=== PATIENT | male | born 1945 | race Caucasian/White ===

== ENCOUNTER 2017-09-27 07:08 | Outpatient (CLI) | payer MEDICARE, OTHER ==
[2017-09-27 11:02] LABS: BASOPHILS # (AUTO) 0.1 10^3/uL (0.0-0.1); BASOPHILS % (AUTO) 0.9 %; EOSINOPHILS # (AUTO) 0.1 10^3/uL (0.0-0.7); EOSINOPHILS % (AUTO) 1.5 %; HCT - HEMATOCRIT 47.3 % (42.0-52.0); HGB - HEMOGLOBIN 15.6 g/dL (14.0-18.0); LYMPHOCYTES # (AUTO) 1.9 10^3/uL (1.5-3.5); LYMPHOCYTES % (AUTO) 29.2 %; MEAN CORPUSCULAR HEMOGLOBIN 30.7 pg (27.0-31.0); MEAN CORPUSCULAR HGB CONC 32.9 g/dL (32.0-36.0); MEAN CORPUSCULAR VOLUME 93.1 fL (80.0-94.0); MEAN PLATELET VOLUME 8.4 fL (7.4-11.4); MONOCYTES # (AUTO) 0.5 10^3/uL (0.0-1.0); MONOCYTES % (AUTO) 8.3 %; NEUTROPHILS # (AUTO) 3.9 10^3/uL (1.5-6.6); NEUTROPHILS % (AUTO) 60.1 %; NUCLEATED RED BLOOD CELLS AUTO 0.1 /100WBC; RED BLOOD COUNT 5.08 10^6/uL (4.70-6.10); RED CELL DISTRIBUTION WIDTH 13.6 % (12.0-15.0); UNCORRECTED WHITE BLOOD COUNT 6.5 x10^3/uL; WHITE BLOOD COUNT 6.5 x10^3/uL (4.8-10.8)
[2017-09-27 11:21] LABS: ALBUMIN/GLOBULIN RATIO 2.1 (1.0-2.2); BILIRUBIN,TOTAL 0.8 mg/dL (0.2-1.0); BUN - BLOOD UREA NITROGEN 20 mg/dL (6-20); CARBON DIOXIDE - CO2 26 mmol/L (21-32); CHLORIDE 104 mmol/L (101-111); CHOLESTEROL 131 mg/dL; CREATININE 0.9 mg/dL (0.6-1.2); GFR - MDRD 82 (>89); GLUCOSE 98 mg/dL (70-100); HDL CHOLESTEROL 43 mg/dL; LDL/HDL RATIO 1.6 (<3.6); POTASSIUM 3.9 mmol/L (3.5-5.0); SODIUM 141 mmol/L (135-145); TOTAL PROTEIN 6.8 g/dL (6.7-8.2); TRIGLYCERIDES 89 mg/dL; VLDL CHOLESTEROL 18 mg/dL
== END 2017-09-27 07:09 | disposition home or self-care (01) ==
LOC: LAB.F 07:08
PROVIDERS: ATTEND Internal Medicine
DX: R03.0 Elevated blood-pressure reading, without diagnosis of hypertension (principal); E78.5 Hyperlipidemia, unspecified; K21.9 Gastro-esophageal reflux disease without esophagitis
CPT/HCPCS: 36415; 80053; 80061; 85025

== ENCOUNTER 2018-07-03 09:43 | Outpatient (CLI) | payer MEDICARE, OTHER ==
[2018-07-03 10:03] LABS: BASOPHILS % (AUTO) 0.4 %; EOSINOPHILS # (AUTO) 0.1 10^3/uL (0.0-0.7); EOSINOPHILS % (AUTO) 1.1 %; LYMPHOCYTES # (AUTO) 1.4 10^3/uL (1.5-3.5); LYMPHOCYTES % (AUTO) 19.4 %; MEAN CORPUSCULAR HEMOGLOBIN 31.1 pg (27.0-31.0); MEAN CORPUSCULAR HGB CONC 33.6 g/dL (32.0-36.0); MEAN CORPUSCULAR VOLUME 92.6 fL (80.0-94.0); MEAN PLATELET VOLUME 7.3 fL (7.4-11.4); MONOCYTES # (AUTO) 0.5 10^3/uL (0.0-1.0); MONOCYTES % (AUTO) 6.8 %; NEUTROPHILS # (AUTO) 5.1 10^3/uL (1.5-6.6); NEUTROPHILS % (AUTO) 72.3 %; PLT - PLATELET COUNT 221 10^3/uL (130-450); RED BLOOD COUNT 5.16 10^6/uL (4.70-6.10); RED CELL DISTRIBUTION WIDTH 13.8 % (12.0-15.0); WHITE BLOOD COUNT 7.1 x10^3/uL (4.8-10.8)
[2018-07-03 10:22] LABS: ALBUMIN 4.1 g/dL (3.2-5.5); ALBUMIN/GLOBULIN RATIO 1.5 (1.0-2.2); BILIRUBIN,TOTAL 0.5 mg/dL (0.2-1.0); CREATININE 0.9 mg/dL (0.6-1.2); TOTAL PROTEIN 6.8 g/dL (6.7-8.2)
--- NOTE | 2018-07-03 10:51 | XRAY Report ---
Reason: COUGH Procedure Date: 07/03/2018 Accession Number: [id number] / [id number] Procedure: XR - Chest 2 View X-Ray CPT Code: 05508 FULL RESULT: EXAM: CHEST RADIOGRAPHY EXAM DATE: 07/03/2018 10:35 AM. CLINICAL HISTORY: COUGH. COMPARISON: Chest 12/18/2015. TECHNIQUE: 2 views. FINDINGS: There is a large right pleural effusion, with likely underlying consolidation and/or atelectasis. Underlying mass is not excluded. Mediastinal contour appears otherwise unremarkable. No obvious pneumothorax. IMPRESSION: Interval right pleural effusion. Likely underlying consolidation and/or atelectasis. Although findings likely represent pneumonia in the correct clinical setting, other etiologies are not excluded. Follow-up is recommended. Note: The patient was advised to seek medical treatment today for this condition and he expressed understanding. RADIA
== END 2018-07-03 09:44 | disposition home or self-care (01) ==
LOC: LAB 09:43 → DI 09:44
PROVIDERS: ATTEND Internal Medicine
DX: J90 Pleural effusion, not elsewhere classified (principal); R63.0 Anorexia; R05 Cough
CPT/HCPCS: 36415; 71046; 80053; 85025

== ENCOUNTER 2018-07-04 08:48 | Outpatient (CLI) | payer MEDICARE, OTHER ==
[2018-07-04] MEDS ORDERED: IOPAMIDOL-300 100 ML VIAL ONE (08:50)
[2018-07-04] MEDS ORDERED: IOPAMIDOL-300 100 ML VIAL IVP ONE (09:36)
--- NOTE | 2018-07-04 09:54 | CT Report ---
Reason: COUGH Procedure Date: 07/04/2018 Accession Number: [id number] / [id number] Procedure: CT - Chest W/ CPT Code: FULL RESULT: EXAM: CT CHEST EXAM DATE: 07/04/2018 09:10 AM. CLINICAL HISTORY: Cough. COMPARISONS: None. TECHNIQUE: Routine helical CT imaging was performed through the chest. IV contrast: None. Reconstructions: Coronal and sagittal. In accordance with CT protocol optimization, one or more of the following dose reduction techniques were utilized for this exam: automated exposure control, adjustment of mA and/or KV based on patient size, or use of iterative reconstructive technique. FINDINGS: Lungs/Pleura: There is a moderate-sized right-sided pleural effusion with moderate compressive atelectasis of the right lower and middle lobes. There is abnormal pleural and parenchymal-based nodularity seen along the medial right upper lobe measuring up to 3.8 x 2.2 cm (image 25, series 3). Multiple nodules are seen in the left lower lobe inferiorly measuring up to 1.9 cm (image 48, series 6). There is no left-sided pleural effusion. Mediastinum: Calcifications are seen in the mediastinum related to old granulomatous disease. There is no lymphadenopathy identified in the mediastinal or hilar regions. Heart size is normal with no pericardial effusion. Bones: The visualized spine demonstrates degenerative changes and multilevel anterior flowing osteophyte formation consistent with diffuse idiopathic skeletal hyperostosis (DISH). No acute osseous abnormality is demonstrated. Visualized Abdomen: Unremarkable. Other: None. IMPRESSION: 1. Moderate right pleural effusion and compressive atelectasis of the right lower and middle lobes. 2. Suspicious 3.8 cm pleural-parenchymal nodular prominence along the medial right upper lobe and nodules in the left lower lobe up to 1.9 cm concerning for malignancy, possibly right-sided lung primary with contralateral metastasis. RADIA
== END 2018-07-04 08:49 | disposition home or self-care (01) ==
LOC: DI 08:48
PROVIDERS: ATTEND Internal Medicine
DX: J90 Pleural effusion, not elsewhere classified (principal); J98.11 Atelectasis
CPT/HCPCS: 71260; Q9967

== ENCOUNTER 2018-07-11 09:09 | Outpatient (CLI) | payer MEDICARE, OTHER ==
[2018-07-11 09:45] LABS: INR 1.1 (0.8-1.2)
[2018-07-11 12:24] LABS: CC,BF RBC 367 /mm^3
[2018-07-11 14:04] LABS: LYMPHOCYTES %,BODY FLUID 26; MESOTHELIAL %, BF 72 %
[2018-07-11 14:05] LABS: BF COLOR BLOODY; BF SOURCE PLEURAL
--- NOTE | 2018-07-11 14:29 | XRAY Report ---
Reason: post thoracentesis Procedure Date: 07/11/2018 Accession Number: [id number] / [id number] Procedure: XR - XR 2V Insp/Exp Post Thorac CPT Code: 41274 FULL RESULT: EXAM: CHEST RADIOGRAPHY EXAM DATE: 07/11/2018 12:02 PM. CLINICAL HISTORY: Post thoracentesis. COMPARISON: Chest 2 views 07/03/2018. TECHNIQUE: 4 views. FINDINGS: Inspiration and expiration radiographs were performed immediately following right thoracentesis and 1 hour following right thoracentesis. Both time points demonstrate a questionable minimal right apical pneumothorax which does not enlarge over the 1 hour timeframe. Opacification of the right hemithorax consistent with pleural effusion is seen. The known thoracic malignancy is not well seen. The cardiomediastinal silhouette is stable throughout the examination. IMPRESSION: Stable minimal apical pneumothorax. RADIA
--- NOTE | 2018-07-11 14:33 | Ultrasound Report ---
Reason: PLEURAL EFFUSION Procedure Date: 07/11/2018 Accession Number: [id number] / [id number] Procedure: US - Thoracentesis Puncture CPT Code: FULL RESULT: EXAM: ULTRASOUND-GUIDED THORACENTESIS EXAM DATE: 07/11/2018 10:54 AM. CLINICAL HISTORY: Pleural effusion. COMPARISON: INSP/EXP POST THORA 2V CXR 07/11/2018 11:08 AM. TECHNIQUE: Risks, benefits and alternatives to the procedure were discussed with the patient. All questions answered. Written and verbal consent obtained. Patient was placed in the sitting position and the skin overlying the effusion marked with sonographic guidance. The skin was sterilely prepped and draped, and 1% buffered lidocaine was used for local anesthesia. An 17-gauge Glo Bags catheter/needle was advanced into the pleural space and fluid aspirated. Upon completion, the catheter was removed. FINDINGS: A total of 60 mL of fluid was removed without immediate complication. Patient tolerated procedure well. IMPRESSION: Ultrasound-guided thoracentesis without immediate complications. RADIA
[2018-07-11] MEDS ORDERED: BUFFERED LIDOCAINE 10 ML SYRINGE IU ONE (17:05)
== END 2018-07-11 09:10 | disposition home or self-care (01) ==
LOC: DI 09:09
PROVIDERS: ATTEND Internal Medicine
DX: J90 Pleural effusion, not elsewhere classified (principal); J95.811 Postprocedural pneumothorax
CPT/HCPCS: 32555; 36415; 71046; 81599; 85610; 87070; 87205; 88108; 88305; 88341; 88342; 89051

== ENCOUNTER 2018-07-18 07:51 | Outpatient (CLI) | payer MEDICARE, OTHER ==
[2018-07-18 15:49] LABS: CREATININE 0.9 mg/dL (0.6-1.2)
== END 2018-07-18 07:52 | disposition home or self-care (01) ==
LOC: LAB.F 07:51
PROVIDERS: ATTEND Internal Medicine
DX: C34.90 Malignant neoplasm of unspecified part of unspecified bronchus or lung (principal); Z79.899 Other long term (current) drug therapy
CPT/HCPCS: 36415; 82565

== ENCOUNTER 2018-07-26 10:43 | Outpatient (CLI) | payer MEDICARE, OTHER ==
--- NOTE | 2018-07-26 12:22 | XRAY Report ---
Reason: ADENOCARCINOMA LUNG SHORTNESS OF BREATH,PLEURAL EF Procedure Date: 07/26/2018 Accession Number: [id number] / [id number] Procedure: XR - Chest 2 View X-Ray CPT Code: 90989 FULL RESULT: EXAM: CHEST RADIOGRAPHY EXAM DATE: 07/26/2018 11:13 AM. CLINICAL HISTORY: Adenocarcinoma of lung, shortness of breath, pleural effusion. COMPARISON: Inspiratory//expiratory post thora 2-view chest x-ray 07/11/2018 11:08 AM. TECHNIQUE: 2 views. FINDINGS: Compared to 07/11/2018, there has been interval increase in the previously moderate right pleural effusion, now large. Mediastinal displacement to the left is increased with minimally increased tracheal deviation. No pneumothorax is identified. Aerated lung parenchyma demonstrates no opacities. IMPRESSION: Interval increase in the right pleural effusion with mediastinal shift. RADIA The above findings of increasing right hydrothorax with tracheal deviation were discussed with Kalee Sweeney by Dr. Markus Campbell at 12:00 hrs on 07/26/18.
[2018-07-26] MEDS ORDERED: BUFFERED LIDOCAINE 10 ML SYRINGE IU ONE (14:23)
--- NOTE | 2018-07-26 16:43 | XRAY Report ---
Reason: F/U THORACENTESIS Procedure Date: 07/26/2018 Accession Number: [id number] / [id number] Procedure: XR - XR 2V Insp/Exp Post Thorac CPT Code: 54807 FULL RESULT: EXAM: CHEST RADIOGRAPHY EXAM DATE: 07/26/2018 02:00 PM. CLINICAL HISTORY: Follow-up thoracentesis. COMPARISON: CHEST 2 VIEW 07/26/2018 11:07 AM. TECHNIQUE: 1 view. FINDINGS: Interval decrease in the size of the right pleural effusion consistent with thoracentesis. No sizable pneumothorax. The apparent interval development of left basilar opacities is possibly due to decreased inspiration. IMPRESSION: Interval decrease in right pleural effusion with left basilar findings felt to be due to decreased lung volume. RADIA
--- NOTE | 2018-07-26 16:43 | Ultrasound Report ---
Reason: RIGHT PLEURAL EFFUSION, ADENOMACARCINOMA Procedure Date: 07/26/2018 Accession Number: [id number] / [id number] Procedure: US - Thoracentesis Puncture CPT Code: FULL RESULT: EXAM: ULTRASOUND-GUIDED THORACENTESIS EXAM DATE: 07/26/2018 01:29 PM. CLINICAL HISTORY: Right pleural effusion, adenomacarcinoma. COMPARISON: None. TECHNIQUE: Risks, benefits and alternatives to the procedure were discussed with the patient. All questions answered. Written and verbal consent obtained. Patient was placed in the sitting position and the skin overlying the effusion marked with sonographic guidance. The skin was sterilely prepped and draped, and 1% buffered lidocaine was used for local anesthesia. An 17-gauge Yueh was advanced into the pleural space and fluid aspirated. Upon completion, the catheter was removed. FINDINGS: A total of 1100 mL of fluid was removed without immediate complication. Patient tolerated procedure well. IMPRESSION: Ultrasound-guided thoracentesis without immediate complications. RADIA
--- NOTE | 2018-07-27 10:28 | XRAY Report ---
Reason: F/U THORACENTESIS Procedure Date: 07/26/2018 Accession Number: [id number] / [id number] Procedure: XR - XR 2V Insp/Exp Post Thorac CPT Code: 74403 FULL RESULT: EXAM: CHEST RADIOGRAPHY EXAM DATE: 07/26/2018 04:02 PM. CLINICAL HISTORY: Follow-up thoracentesis. COMPARISON: Inspiratory/expiratory post thora 2 view chest x-ray 07/26/2018 1:59 PM. TECHNIQUE: 1 view. FINDINGS: No evidence of interval growth of pneumothorax or growth of pleural effusion to suggest procedural complication. Otherwise stable exam. IMPRESSION: Interval stability. RADIA
== END 2018-07-26 10:44 | disposition home or self-care (01) ==
LOC: DI 10:43
PROVIDERS: ATTEND Nurse Practitioner Primary Care
DX: C34.90 Malignant neoplasm of unspecified part of unspecified bronchus or lung (principal); J90 Pleural effusion, not elsewhere classified
CPT/HCPCS: 32555; 71046

== ENCOUNTER 2018-08-01 09:49 | Day surgery (SDC) | payer MEDICARE, OTHER ==
[2018-08-01] MEDS ORDERED: LACTATED RINGERS 1,000 ML IV ONE (10:30)
[2018-08-01] MEDS ORDERED: ceFAZolin 2 GM/50 ML 2 GM/50 ML BAG IV ONE (10:45)
--- NOTE | 2018-08-01 11:06 | ANESTHESIA ---
Pre-Anesthesia VS, & Labs - Diagnosis recurrent malignant effusion - Procedure pleural catheter placement Vital Signs: Temp Pulse Resp BP Pulse Ox 36.5 C 100 18 162/96 H 97 08/01/18 10:04 08/01/18 10:04 08/01/18 10:04 08/01/18 10:04 08/01/18 10:04 Height 5 ft 9.5 in Weight (kg) 90.7 kg - NPO >8 hours - Lab Results Lab results reviewed: Yes Home Medications and Allergies Home Medications: Ambulatory Orders Fexofenadine/Pseudoephedrine [Liana-D 24 Hour Tablet] 1 each PO DAILY 07/31/18 Naproxen Sodium [Aleve] 220 mg PO DAILY 07/31/18 Prednisone 50 mg PO DAILY 07/31/18 Ranitidine HCl [Zantac] 300 mg PO DAILY 07/31/18 Atorvastatin [Lipitor] 40 mg PO DAILY 12/18/15 Fexofenadine/Pseudoephedrine [Liana-D 24 Hour Tablet] 1 each PO DAILY 07/31/18 Naproxen Sodium [Aleve] 220 mg PO DAILY 07/31/18 Prednisone 50 mg PO DAILY 07/31/18 Ranitidine HCl [Zantac] 300 mg PO DAILY 07/31/18 Allergies/Adverse Reactions: Allergies Allergy/AdvReac Type Severity Reaction Status Date / Time codeine Allergy Unknown Verified 07/31/18 14:46 Iodinated Contrast- Oral and Allergy Hives Verified 07/31/18 14:46 IV Dye IV CONTRAST Allergy Hives Uncoded 07/31/18 14:27 Anes History & Medical History - Anesthetic History Anesthesia Complications: reports: Slow wake-up Family history of Anesthesia Complications: Denies Family history of Malignant Hyperthermia: Denies - Medical History Cardiovascular: reports: High cholesterol Pulmonary: reports: Shortness of breath Gastrointestinal: reports: None Urinary: reports: None Musculoskeletal: reports: None Endocrine/Autoimmune: reports: None Skin: reports: None Smoking Status: Never smoker - Surgical History Orthopedic: Rotator cuff repair, Other Exam General: Alert, Oriented x3, Cooperative, No acute distress Dental: Other (caps) Mouth Openin Fingerbreadth Neck Mobility: Normal Mallampati classification: II Thyromental Distance: greater than 6 cm Respiratory: Lungs clear Cardiovascular: Regular rate, Normal S1, Normal S2, No murmurs Mental/Cognitive Status: Alert/Oriented X3, Normal for patient Cognitive Status: Within normal limits Plan Anesthesia Type: MAC Consent for Procedure(s) Verified and Reviewed: Yes Code Status: Do Not Attempt Resuscitation ASA classification: 3-Severe systemic disease Is this case an emergency?: No
[2018-08-01] MEDS ORDERED: fentaNYL 100 MCG/2 ML VIAL IVP ONE (12:00)
[2018-08-01] MEDS ORDERED: LIDOCAINE-PF 4% 5 ML AMP SUBQ ONE (12:00)
[2018-08-01] MEDS ORDERED: PROPOFOL 200 MG/20 ML VIAL IVP ONE (12:00)
[2018-08-01] MEDS ORDERED: MIDAZOLAM 2 MG/2 ML VIAL IVP ONE (12:00)
[2018-08-01] MEDS ORDERED: LIDOCAINE 1% 50 ML MDV SUBQ ONE (12:25)
--- NOTE | 2018-08-01 13:08 | OPERATIVE REPORT ---
Operative Report - General Planned Procedure: Pleurex catheter placement (RIGHT chest) Pre-Op Diagnosis: Recurrent RIGHT pleural effusion Procedure Performed: Pleurex catheter placement (RIGHT chest) Post Op Diagnosis: Recurrent RIGHT pleural effusion - Procedure Note Primary Surgeon: Andrea Clark MD Anesthesia Provider: Marlon Elizalde CRNA Anesthesia Technique: Local (30 mL of 1% lidocaine), MAC IV Fluids (mL): 800 Estimated Blood Loss (mL): 5 Drain/Tube Type: Other (Pleurx catheter in right chest) Complications: None. - Other Other Information/Narrative: OPERATIVE DESCRIPTION/REPORT: After verbal and written informed consent was obtained detailing the risks of infection, bleeding requiring transfusion with its risks, nerve injury, and , and after I met with the patient confirming the surgery, the site of the surgery (signing it), the patient was brought to the operative suite and placed supine on the operating table. Great care was taken to avoid pressure points to prevent pressure necrosis or nerve injury. Monitoring devices were applied along with TEDs and pneumatic compressive stockings (to prevent DVT). The patient received preoperative antibiotics for surgical prophylaxis. Marlon Elizalde CRNA sedated and anesthetized the patient for the entire procedure. The patient was prepped and draped in the usual sterile manner. With the patient draped my initials were clearly visible. A "time in" then confirmed that the patient was identified with 3 identifiers (name, date and medical record number), the history and physical was in the chart, the signed consent confirming the procedure was in the chart, the patient was in the correct position, the aforementioned prophylactic measures were in place or given, we had the correct personnel and equipment to complete the procedure and that anesthesia, surgery and nursing were given an opportunity to express any concerns. With the agreement of everyone in the room, we proceeded with the operation. 1% lidocaine was used to infiltrate two areas; one in the right upper quadrant where the tube would exit and the other along the anterior axillary line in the seventh intercostal space. A small counter-incision was made in the right upper quadrant area. Through the anterior axillary line area, the pleural space was accessed by Seldinger technique. The counterincision was made around the guide wire and then the PleurX catheter was tunneled from the right upper quadrant small incision to the one overlying the ribs. A sheath introducer was then passed over the wire and then the PleurX catheter was placed through the sheath introducer. There was good return of fluid. One liter of [x] fluid was withdrawn slowly as the small counter-incision was closed with a subcuticular Monocryl stitch. The catheter was capped off, and sterile dressings were applied. A time out was performed that confirmed that all the counts were correct, the procedure that was performed, the blood loss, the IV fluids administered, and the patients condition. Dressings were then applied. All surgical counts were reported as correct. Having tolerated the procedure well, the patient was taken to recovery room in good and stable condition. A post-procedure chest xray was ordered in recovery. [employer] disclaimer: This document was created in part using voice recognition technology. Because of the inherent limitations of the system ([employer] user manual states that the licensee understands that speech recognition is a statistical process and that recognition errors are inherent in the process), occasional same sounding word substitutions and grammatical errors do occur and persist despite proofreading. Please read this document for context.
[2018-08-01] MEDS ORDERED: HYDROcod/ACETAM 5/325 MG TABLET ONE (13:41)
[2018-08-01] MEDS ORDERED: HYDROmorphone 0.5 MG/0.5 ML SYRINGE IVP PRN (14:07)
[2018-08-01] MEDS ORDERED: ONDANSETRON 4 MG/2 ML VIAL IVP PRN (14:07)
[2018-08-01] MEDS ORDERED: HYDROcod/ACETAM 5/325 MG TABLET PO PRN (14:07)
--- NOTE | 2018-08-01 14:24 | XRAY Report ---
Reason: s/p Pleurex cathter placement Procedure Date: 08/01/2018 Accession Number: [id number] / [id number] Procedure: XR - Chest 1 View X-Ray CPT Code: 21070 FULL RESULT: EXAM: CHEST RADIOGRAPHY EXAM DATE: 08/01/2018 01:55 PM. CLINICAL HISTORY: Status post PleurX catheter placement. COMPARISON: INSP/EXP POST THORA 2V CXR 07/26/2018 3:58 PM. TECHNIQUE: 1 view. FINDINGS: A right side approach catheter is seen outside of the thoracic ribcage and then sharply coursing medially with approximately 2.7 cm identified in an intrathoracic position. Please note that the exact position of the distal tip may be obscured by the pleural effusion. The right hemithorax remains opacified. The mediastinum is unchanged. There is no sizable pneumothorax. Left lung is normal. IMPRESSION: Right side approach mid thoracic level catheter placement with a minimum of 2.7 cm within the osseous hemithorax. Recommend repeat PA and lateral radiographs in the department for formal evaluation. RADIA
[2018-08-01 15:25] VITALS: BP 143/78
--- NOTE | 2018-08-01 15:26 | XRAY Report ---
Reason: post chest tube placement Procedure Date: 08/01/2018 Accession Number: [id number] / [id number] Procedure: XR - Chest 2 View X-Ray CPT Code: 87874 FULL RESULT: EXAM: CHEST RADIOGRAPHY. EXAM DATE: 08/01/2018 03:05 PM. CLINICAL HISTORY: Post chest tube placement. COMPARISON: Chest 1 view 08/01/2018 1:55 PM. TECHNIQUE: 2 views. FINDINGS: The cardiomediastinal silhouette is stable. Left lung is clear. Opacification of the right hemithorax due to a known pleural effusion persists. No large pneumothorax. The right approach thoracic drainage catheter is now clearly visualized with its tip 2.8 cm distal to the osseous hemithorax when evaluated solely on frontal radiograph. The lateral radiograph reveals that there are in fact 6 cm of intrathoracic catheter coursing caudally. IMPRESSION: 6 cm of intrathoracic pleural drainage catheter. RADIA
== END 2018-08-01 09:50 | disposition home or self-care (01) ==
LOC: SDS 09:49
PROVIDERS: ATTEND Surgery
PROC: 0W9830Z Drainage of Chest Wall with Drainage Device, Percutaneous Approach (ICD-10-PCS; principal; 2018-08-01 11:00)
DX: J91.0 Malignant pleural effusion (principal); R06.02 Shortness of breath; C34.92 Malignant neoplasm of unspecified part of left bronchus or lung; C34.91 Malignant neoplasm of unspecified part of right bronchus or lung; E78.5 Hyperlipidemia, unspecified; F41.9 Anxiety disorder, unspecified; R12 Heartburn; Z87.891 Personal history of nicotine dependence; Z66 Do not resuscitate
CPT/HCPCS: 71045; 71046